=== PATIENT | female | born 1945 | race Hispanic/Latino ===

== ENCOUNTER 2018-12-25 12:06 | Outpatient (CLI) | payer MEDICARE ==
--- NOTE | 2018-12-25 13:05 | MMO ---
Bilateral MAMMO Bilat Screen [facility]. CLINICAL HISTORY: Patient is 73 years old and is seen for screening. The patient has the following family history of breast cancer: sister, at age 59. The patient has no personal history of cancer. VIEWS: The views performed were: bilateral craniocaudal with tomosynthesis and bilateral mediolateral oblique with tomosynthesis. FILMS COMPARED: The present examination has been compared to prior imaging studies performed at [facility] on 11/06/2002, 07/12/2004, 05/25/2006 and 01/23/2008. This study has been interpreted with the assistance of computer-aided detection. MAMMOGRAM FINDINGS: There are scattered fibroglandular densities. There are no suspicious masses, suspicious calcifications, or new areas of architectural distortion. IMPRESSION: THERE IS NO MAMMOGRAPHIC EVIDENCE OF MALIGNANCY. A ROUTINE FOLLOW-UP MAMMOGRAM IN 1 YEAR IS RECOMMENDED. THE RESULTS OF THIS EXAM WERE SENT TO THE PATIENT. ACR BI-RADS Category 1 - Negative MAMMOGRAPHY NOTE: 1. A negative mammogram report should not delay a biopsy if a dominant of clinically suspicious mass is present. 2. Approximately 10% to 15% of breast cancers are not detected by mammography. 3. Adenosis and dense breasts may obscure an underlying neoplasm. Reported by: CARL CASTELLANO MD Electonically Signed: [id number]
== END 2018-12-25 12:07 | disposition home or self-care (01) ==
LOC: BICMAMMO 12:06
PROVIDERS: ATTEND Internal Medicine
DX: Z12.31 Encounter for screening mammogram for malignant neoplasm of breast (principal); Z80.3 Family history of malignant neoplasm of breast
CPT/HCPCS: 77063; 77067

== ENCOUNTER 2019-09-16 11:37 | Outpatient (CLI) | payer MEDICARE ==
--- NOTE | 2019-09-16 12:40 | RAD ---
EXAM: Right rib series HISTORY: Fall with right rib pain COMPARISON: None FINDINGS: Multiple views of the right ribs shows no evidence of displaced rib fracture. No underlying pleural t hickening or pneumothorax are seen. IMPRESSION: 1. No evidence of displaced rib fracture.
--- NOTE | 2019-09-16 13:31 | RAD ---
FOUR VIEWS OF THE LEFT KNEE: DATE: 09/16/2019. COMPARISON: None. HISTORY: Fall, pain. FINDINGS: There is no knee joint effusion, displaced fracture, or evidence of dislocation seen. IMPRESSION: No acute fracture or dislocation noted. POS: [facility]
--- NOTE | 2019-09-16 13:32 | RAD ---
TWO VIEWS OF THE CHEST: DATE: 09/16/2019. HISTORY: Fall, trauma, right-sided pain. FINDINGS: No pneumothorax or pleural fluid. No focal consolidation or alveolar edema. Heart and mediastinal c ontours appear unremarkable. IMPRESSION: No acute findings. POS: [facility]
--- NOTE | 2019-09-16 13:39 | RAD ---
FOUR VIEWS OF THE RIGHT KNEE: 09/16/19 HISTORY: Fall, trauma, pain. FINDINGS: No displaced fracture or dislocation. No knee joint effusion. There is probable soft tissue swelling anterior to the patella. IMPRESSION: No acute fracture or dislocation. Probable soft tissue swelling anterior to the right patella. POS: [facility]
--- NOTE | 2019-09-16 14:06 | RAD ---
THREE VIEWS OF THE LEFT WRIST: DATE: 09/16/2019. HISTORY: Fall, trauma, pain. FINDINGS: There is severe degenerative change involving the 1st carpometacarpal joint with joint space narrowin g, subchondral sclerosis, and osteophyte formation. There is chondrocalcinosis in the region of the triangular fibrocartilage complex. There is no widening of the scapholunate interval. No displaced fracture or evidence of dislocation is appreciated. A very subtle calcific density is seen dorsal to the carpus on the lateral examination. This could b e related to a very small subtle triquetral chip fracture or could be the result of chondrocalcinosis . IMPRESSION: Chondrocalcinosis with prominent 1st carpometacarpal joint degenerative change. Very subtle calcific density along the dorsal aspect of the wrist on the lateral view which may signify calcification on the basis of chondrocalcinosis or a very small triquetral chip fracture. POS: [facility]
== END 2019-09-16 11:38 | disposition home or self-care (01) ==
LOC: BICRAD 11:37
PROVIDERS: ATTEND Internal Medicine
DX: M25.532 Pain in left wrist (principal); M17.0 Bilateral primary osteoarthritis of knee; R07.81 Pleurodynia; M11.232 Other chondrocalcinosis, left wrist; M19.032 Primary osteoarthritis, left wrist
CPT/HCPCS: 71046

== ENCOUNTER 2022-02-15 10:31 | Emergency (ER) | payer MEDICARE | END 2022-02-15 12:45 | disposition home or self-care (01) | LOC: ERS 10:31 | DX: S92.322A Displaced fracture of second metatarsal bone, left foot, initial encounter for closed fracture (principal); X58.XXXA Exposure to other specified factors, initial encounter; I10 Essential (primary) hypertension ==

== ENCOUNTER 2022-06-29 14:51 | Outpatient (CLI) | payer MEDICARE | END 2022-06-29 14:52 | disposition home or self-care (01) | LOC: ULT 14:51 | PROVIDERS: ATTEND Internal Medicine | DX: I50.9 Heart failure, unspecified (principal); R14.0 Abdominal distension (gaseous); R10.9 Unspecified abdominal pain; R18.8 Other ascites; R93.2 Abnormal findings on diagnostic imaging of liver and biliary tract | CPT/HCPCS: 71046; 76700 ==